=== PATIENT | female | born 1955 | race Caucasian/White ===

== ENCOUNTER → 2022-06-24 11:12 | Outpatient (CLI) | payer MEDICARE, SELFPAY | PROVIDERS: PCP Internal Medicine; Referring Provider Internal Medicine; Visit Provider Internal Medicine | DX: Z78.0 Asymptomatic menopausal state (principal); Z13.820 Encounter for screening for osteoporosis | CPT/HCPCS: 77080 ==

== ENCOUNTER → 2022-09-14 08:53 | Outpatient (CLI) | payer MEDICARE, SELFPAY ==
--- NOTE | 2022-09-14 | DI.NM.S_ITS ---
PROCEDURE: NM BONE SCAN WHOLE BODY RADIOPHARMACEUTICAL: 19.1 mCi Tc-99m MDP IV. INDICATIONS: Presence of right artificial hip joint TECHNIQUE: Delayed whole-body scintigrams were obtained approximately 3-4 hours after intravenous injection of radiotracer. Anterior and posterior views were acquired from vertex to feet. Additional left and right oblique views of the pelvis and hips were obtained. COMPARISON: [facility], CR, XR PELVIS WITH LATERAL HIP RIGHT, 08/11/2022, 9:33. FINDINGS: There are bilateral hip arthroplasties. Low-level increased activity around the hip prosthesis is nonspecific, most likely secondary to postsurgical change. There is mildly increased uptake in the right side of the manubrium. Mild focal uptake is noted in the right 6th rib posterior laterally. No lesions are identified in skull, clavicles, scapulae, bony pelvis, and visualized shafts of the long bones. There are foci of increased uptake in cervical, thoracic and lumbar spine most likely secondary to degenerative disc and facet disease; early metastasis to spine could be obscured by degenerative changes. There are foci of increased periarticular activity involving shoulders, wrists and sacroiliac joints, compatible with degenerative/arthritic changes. IMPRESSION: 1. Bilateral hip arthroplasties. There is low-level increased activity around hip prostheses bilaterally, most likely secondary to postsurgical change. No definitive scintigraphic findings to suggest prosthesis loosening or infection. 2. Mildly increased uptake in and the right 6th rib, indeterminate in nature. Recommend radiographic correlation as clinically needed. 3. Degenerative changes in spine and multiple peripheral joints. Dictated by: Theron Vitale M.D. on 09/14/2022 at 14:11 Approved by: Theron Vitale M.D. on 09/14/2022 at 14:15
== END ==
PROVIDERS: PCP Internal Medicine; Referring Provider Orthopaedic Surgery; Visit Provider Orthopaedic Surgery
DX: Z96.643 Presence of artificial hip joint, bilateral; Z09 Encounter for follow-up examination after completed treatment for conditions other than malignant neoplasm
CPT/HCPCS: 78306; A9503

== ENCOUNTER → 2022-10-21 09:57 | Outpatient (CLI) | payer OTHER, SELFPAY ==
--- NOTE | 2022-10-21 | DI.MG.S_ITS ---
BILATERAL DIGITAL SCREENING MAMMOGRAM 3D/2D WITH CAD: 10/21/2022 CLINICAL: Routine screening. Baseline exam by default. No prior exams were available for comparison. Both breasts are heterogeneously dense, which may obscure small masses (category c / 51-75% glandular tissue). Current study was also evaluated with a Computer Aided Detection (CAD) system. No significant masses, calcifications, or other findings are seen in either breast. IMPRESSION: NEGATIVE There is no mammographic evidence of malignancy. A 1 year screening mammogram is recommended. This exam was interpreted at Station ID: [id number]. NOTE: For mammograms, a report in lay terms will be sent to the patient. Approximately 15% of breast malignancies will not be visualized mammographically. In the management of a palpable breast mass, a negative mammogram must not discourage biopsy of a clinically suspicious lesion. Electronically Signed By: Joshua Roque M.D., jr/mario:10/21/2022 10:56:31 letter sent: Normal Exam ACR BI-RADS Category 1: Negative 3341F
== END ==
PROVIDERS: PCP Internal Medicine; Referring Provider Internal Medicine; Visit Provider Internal Medicine
DX: Z12.31 Encounter for screening mammogram for malignant neoplasm of breast (principal)
CPT/HCPCS: 77063; 77067

== ENCOUNTER 2022-12-29 12:56 | Day surgery (SDC) | payer OTHER, SELFPAY ==
--- NOTE | 2022-12-29 | PATH_ITS ---
[facility] Accession Number: [id number] No. of containers..01 Tissue . 01 Material submitted: . rectum - RECTAL BIOPSY . 01 Diagnosis: A. Rectum, Biopsy: Hyperplastic polyp. MRV 01/04/2023 1204 Local . 01 Electronically signed: . Lisette Mueller MD, Pathologist NPI- [id number] . 01 Gross description: . RECTAL BIOPSY: Received in formalin is 1 fragment(s) of calderon, soft tissue measuring 0.3 x 0.2 x 0.2 cm submitted entirely in 1 cassette(s) /TRC 12/30/2022 1531 Local . 01 Pathologist provided ICD-10: Z12.11, K62.1 . 01 CPT . 444021 Specimen Comment: A courtesy copy of this report has been sent to [phone] Performed at: 01 [facility] [address] [place] [address] [address], [place], [place] [id number] MD Keith Herndon MD Phone: [phone]
[2022-12-29 13:17] VITALS: BMI 21.4
[2022-12-29 13:31] VITALS: BP 125/76; PULSE 83; RESP 17; TEMP 36.4; O2SAT 99
[2022-12-29] MEDS: LACTATED RINGERS 1,000 ML 42 ML IV (13:35)
--- NOTE | 2022-12-29 13:38 | PM.HP.1 ---
History of Present Illness History of Present Illness Date Patient Seen: 12/29/22 Chief complaint: SDC Narrative: Follow-up 10 year colonoscopy PFSH Medical History Arthritis Back pain Basal cell carcinoma Hip pain Hyperlipemia Tachycardia Thigh pain Surgical History H/O elbow surgery History of carpal tunnel surgery History of hip replacement History of open heart surgery Family History Mother Breast cancer Stroke Brother No problems noted. Sister Skin cancer Social History marital status: household members: spouse occupational status: previously employed Smoking Status: Never smoker alcohol intake: current Meds Home Medications and Allergies Home Medications Medication Instructions Recorded Confirmed Type atorvastatin 20 mg tablet 20 mg PO DAILY 03/19/22 12/29/22 History diphenhydramine HCl 25 mg tablet 25 mg PO BEDTIME PRN 03/19/22 04/08/22 History ibuprofen 200 mg tablet 200 mg PO Q6H PRN 03/19/22 04/08/22 History magnesium oxide 500 mg capsule 500 mg PO DAILY 03/19/22 04/08/22 History multivitamin with minerals 1 tab PO DAILY 03/19/22 04/08/22 History (Hair,Skin and Nails tablet) turmeric root extract 500 mg 1,000 mg PO DAILY 03/19/22 04/08/22 History capsule vit C 250 mg-vit E 90 mg-zinc 40 1 tab PO ONCE 03/19/22 04/08/22 History mg-copper 1 iu-mrtgnx-jzhoie capsule (PreserVision AREDS-2) vitamin B complex 1 cap PO DAILY 03/19/22 04/08/22 History Allergies Allergy/AdvReac Type Severity Reaction Status Date / Time naproxen [From Naprosyn] AdvReac Mild Rash Verified 12/29/22 13:15 Exam Vital Signs (past 8 hours): - 12/29/22 13:31 Temperature 97.5 F L Pulse Rate 83 Respiratory Rate 17 Blood Pressure 125/76 Pulse Oximetry 99 Oxygen Delivery Method Room Air Oxygen Delivery Method Room Air Narrative Exam Narrative: Oropharynx free of lesions Chest clear to auscultation percussion Cardiac exam reveals no S3 or murmur Assessment & Plan Assessment & Plan narrative: Follow-up 10 year colonoscopy. Risks, benefits, alternatives have been explained.
--- NOTE | 2022-12-29 13:39 | PM.OP.COLON ---
Operative Date/Time/Diagnoses Date of procedure: 12/29/22 Pre-op diagnosis: See indication and findings Procedure & Clinicians Study performed: Colonoscopy Indications: 10 year screening Surgeon: Gerry Medina Procedure Notes Procedure in detail: After informed consent was obtained the patient was placed in left lateral decubitus position. The video colonoscope was inserted into the rectum and slowly advanced to the cecum. Preparation was good. On slow withdrawal mucosa was carefully examined. The scope was removed. The patient tolerated procedure well. Blood loss none Complications none Sedation mac Findings 1. Normal colonoscopy to cecum. 2. Colon quite tortuous Patient should have follow-up colonoscopy in 10 years
[2022-12-29 14:16] VITALS: BP 83/42; PULSE 80; RESP 16; TEMP 36.4; O2SAT 94
[2022-12-29 14:19] VITALS: BP 93/49; PULSE 72; RESP 16; O2SAT 95
[2022-12-29 14:27] VITALS: PULSE 76; RESP 18; O2SAT 98
== END 2022-12-29 14:56 | disposition home or self-care (01) ==
PROVIDERS: PCP Internal Medicine; Referring Provider Internal Medicine Gastroenterology; Visit Provider Internal Medicine Gastroenterology
PROC: 0DJD8ZZ Inspection of Lower Intestinal Tract, Via Natural or Artificial Opening Endoscopic (ICD-10-PCS; CPT 45378; principal; 2022-12-29 14:00)
DX: Z12.11 Encounter for screening for malignant neoplasm of colon (principal)
CPT/HCPCS: G0121; J2704

== ENCOUNTER → 2023-12-23 08:06 | Outpatient (CLI) | payer MEDICARE, SELFPAY ==
--- NOTE | 2023-12-23 | DI.MG.S_ITS ---
BILATERAL DIGITAL SCREENING MAMMOGRAM 3D/2D WITH CAD: 12/23/2023 CLINICAL: Routine screening. Family history of breast cancer. Comparison is made to exam dated: 10/21/2022 mammogram - [facility]. Both breasts are heterogeneously dense, which may obscure small masses (category c / 51-75% glandular tissue). Current study was also evaluated with a Computer Aided Detection (CAD) system. No significant masses, calcifications, or other findings are seen in either breast. There has been no significant interval change. IMPRESSION: NEGATIVE There is no mammographic evidence of malignancy. A 1 year screening mammogram is recommended. Based on the Tyrer Cuzick model (a risk assessment model) the patient's lifetime risk is 17.0% and her 10 year risk is 11.0%. According to the ACR, ACS, and NCCN guidelines, an annual breast MRI exam along with mammogram is recommended if the patient's lifetime risk is 20% or greater. This exam was interpreted at Station ID: [id number]. NOTE: For mammograms, a report in lay terms will be sent to the patient. Approximately 15% of breast malignancies will not be visualized mammographically. In the management of a palpable breast mass, a negative mammogram must not discourage biopsy of a clinically suspicious lesion. Electronically Signed By: Adelaida jackson/mario:12/23/2023 16:08:16 letter sent: Normal Exam ACR BI-RADS Category 1: Negative 3341F
== END ==
PROVIDERS: PCP Internal Medicine; Referring Provider Internal Medicine; Visit Provider Internal Medicine
DX: Z12.31 Encounter for screening mammogram for malignant neoplasm of breast (principal); Z80.3 Family history of malignant neoplasm of breast; R92.333 Mammographic heterogeneous density, bilateral breasts
CPT/HCPCS: 77063; 77067

== ENCOUNTER → 2024-12-25 10:06 | Outpatient (CLI) | payer MEDICARE, SELFPAY ==
--- NOTE | 2024-12-25 10:08 | DI.MG.S_ITS ---
MM screening mammo BI: 12/25/2024. BI-RADS: 2 CLINICAL: 69-year old female for bilateral screening mammogram. Tyrer-Cuzick lifetime risk of 9.9%. Current reported family history of breast cancer: mother. History of ovarian cancer in one first-degree relative. The patient had a prior right breast biopsy. PRIOR EXAMS 12/23/2023, 10/21/2022. MAMMOGRAPHY TECHNIQUE: 2D and 3D (tomosynthesis) digital mammographic views obtained, with additional images as needed for full coverage. Current study was also evaluated with a Computer Aided Detection (CAD) system. DENSITY C. The breasts are heterogeneously dense, which may obscure small masses. MAMMOGRAPHY FINDINGS Right: Biopsy marker present on the right. There are no suspicious masses, calcifications, or other findings in the breast. No significant change from comparison. Left: No suspicious mass, asymmetry, microcalcification, or other abnormality seen. No significant change from comparison. IMPRESSION: Right * No evidence of malignancy with benign findings. Left * No evidence of malignancy. RECOMMENDATIONS Bilateral * Annual screening mammography. OVERALL ASSESSMENT CATEGORY BI-RADS-2: Benign. The [employer] recommends annual screening mammography beginning at age 40 for women with average risk of breast cancer. ELECTRONICALLY SIGNED: Ayala Barfield M.D. on 12/25/2024 at 05:12:44 PM PT Interpreting Station ID: [id number]
== END ==
LOC: MAMMO 10:07
PROVIDERS: PCP Internal Medicine; Referring Provider Internal Medicine; Visit Provider Internal Medicine
DX: Z12.31 Encounter for screening mammogram for malignant neoplasm of breast (principal); Z80.3 Family history of malignant neoplasm of breast; Z80.41 Family history of malignant neoplasm of ovary; R92.333 Mammographic heterogeneous density, bilateral breasts
CPT/HCPCS: 77063; 77067

== ENCOUNTER → 2025-01-10 08:33 | Outpatient (CLI) | payer MEDICARE, SELFPAY ==
--- NOTE | 2025-01-10 08:34 | DI.US.S_ITS ---
PROCEDURE: US THYROID INDICATIONS: THYROID NODULES TECHNIQUE: Real-time scanning was performed of the thyroid gland, with image documentation. COMPARISON: None. FINDINGS: Thyroid: Right lobe measures 3.3 x 4.0 x 3.9 cm. Left lobe measures 5.7 x 2.1 x 2.3 cm. Isthmus is 0.38 cm thick. Echotexture is heterogeneous. Nodule number: 1 Location: Mid to lower pole left thyroid lobe Size: 3.8 x 2.3 x 2.3 cm. Composition: Predominantly solid Echogenicity: Hypoechoic Shape: Wider than tall Margins: Smooth Echogenic foci: Macro calcifications Total points: 5 ACR TI-RADS category: 4 Nodule number: 2 Location: Upper to midpole right thyroid lobe Size: 3.2 x 3.3 x 2.5 cm. Composition: Predominantly solid Echogenicity: Hypoechoic Shape: Wider than tall Margins: Smooth Echogenic foci: Macro calcifications. Total points: 5 ACR TI-RADS category: 4 Nodule number: 3 Location: Mid to lower pole right thyroid lobe. Size: 4.8 x 4.2 x 3.9 cm. Composition: Predominantly solid Echogenicity: Hypoechoic Shape: Wider than tall Margins: Smooth Echogenic foci: Comet tail artifacts. Total points: 7 ACR TI-RADS category: 5 IMPRESSION: 3 category 4 and 5 bilateral thyroid nodules as described above. Fine needle aspiration of all 3 nodules is recommended for further evaluation. ACR TI-RADS definitions and recommendations: TI-RADS 1 (benign): 0 points. FNA not needed. TI-RADS 2 (not suspicious): 2 points. FNA not needed. TI-RADS 3: 3 points. * FNA if 2.5 cm or larger, follow up if 1.5 cm or larger (at 1, 3, and 5 years). TI-RADS 4: 4-6 points. * FNA if 1.5 cm or larger, follow up if 1 cm or larger (at 1, 2, 3, and 5 years). TI-RADS 5: 7 points or more. * FNA if 1 cm or larger, follow up if 0.5 cm or larger (every year for 5 years). Dictated by: Marlon Rudolph M.D. on 01/15/2025 at 14:00 Approved by: Marlon Rudolph M.D. on 01/15/2025 at 14:04
== END ==
LOC: US 08:34
PROVIDERS: PCP Internal Medicine; Referring Provider Internal Medicine; Visit Provider Internal Medicine
DX: E04.2 Nontoxic multinodular goiter (principal)
CPT/HCPCS: 76536